=== PATIENT | male | born 1985 ===

== ENCOUNTER 2017-06-03 22:35 | Emergency (ER) | payer BC ==
[2017-06-04] MEDS: ALBUTEROL 0.083% (NEB) 2.5 MG/3 ML AMP HHN (04:15)
[2017-06-04] MEDS: IPRATROPIUM (NEB) 0.5 MG/2.5 ML AMP HHN (04:15)
== END 2017-06-04 05:40 | disposition home or self-care (01) ==
LOC: FTE 22:35
DX: J40 Bronchitis, not specified as acute or chronic (principal); Z87.891 Personal history of nicotine dependence
CPT/HCPCS: 71045; 94664; 99283-25